=== PATIENT | female | born 1975 | race Caucasian/White ===

== ENCOUNTER 2021-10-08 13:08 | Emergency (ER) | payer MEDICAID ==
[~2021-10-08] VITALS: Ht 167.6 cm; Wt 68.5 kg
[2021-10-08] MEDS ORDERED: INSULIN (13:14)
[2021-10-08] MEDS ORDERED: SODIUM CHLORIDE 0.9% 1,000 ML IV ONE (14:15)
[2021-10-08] MEDS ORDERED: INSULIN REGULAR (HUMULIN R) 300UNITS/3ML VIAL SUBCUT ONE (14:15)
[2021-10-08 14:18] LABS: BASOPHILS % 0.3 % (0.0-2.0); HEMATOCRIT. 42.3 % (36.0-48.0); HEMOGLOBIN. 14.7 g/dL (12.0-16.0); LYMPHOCYTES % 29.5 % (20.0-50.0); MEAN CORPUSCULAR VOLUME 92.2 fL (81.0-99.0); NEUTROPHILS % 63.2 % (40.0-76.0); PLATELET 122 x1000/uL (130-400); RED BLOOD CELL COUNT 4.58 mill/uL (4.2-5.4); RED CELL DISTRIBUTION WIDTH 12.1 % (11.6-14.6)
[2021-10-08 14:34] LABS: CHLORIDE 103 mEq/L (98-107)
[2021-10-08 14:36] LABS: BETA HYDROXYBUTYRATE 1.5 mMol/L (0.0-0.3)
[2021-10-08] MEDS ORDERED: INSLIS SUBCUT (14:56)
[2021-10-08] MEDS ORDERED: INSU100I24 SQ (14:56)
[2021-10-08 15:08] VITALS: BP 113/78
== END 2021-10-08 15:23 | disposition home or self-care (01) ==
LOC: ER 13:08
DX: E11.65 Type 2 diabetes mellitus with hyperglycemia (principal); I10 Essential (primary) hypertension; E86.0 Dehydration; E88.89 Other specified metabolic disorders; Z98.890 Other specified postprocedural states
CPT/HCPCS: 36415; 71045; 80053; 82010; 85025; 93005; 96372; 99285; J1815; J7030